=== PATIENT | male | born 1965 | race Caucasian/White ===

== ENCOUNTER 2023-11-11 07:02 | Inpatient (IN) | payer OTHER ==
[~2023-11-11] VITALS: Ht 177.8 cm; Wt 154.8 kg
[2023-11-11] MEDS: SODIUM CHLORIDE 0.9% 500 ML IVB ONE (07:42)
[2023-11-11] MEDS: MORPHINE SULFATE 4 MG/ML SYR/VIAL IV ONE ×2 (07:57→10:57)
[2023-11-11] MEDS: ONDANSETRON HCL 4 MG/2 ML VIAL IV ONE ×2 (07:58→10:55)
[2023-11-11 08:16] LABS: Basophils # (auto) 0.1 10 ^3/uL (0-0.2); Basophils % (auto) 0.5 % (0.0-2.0); Eosinophils # (auto) 0.1 10 ^3/uL (0-0.8); Eosinophils % (auto) 0.6 % (0.0-7.0); Hematocrit 42.7 % (41.0-53.0); Hemoglobin 14.4 g/dL (13.5-17.5); Lymphocytes # (auto) 1.1 10 ^3/uL (0.4-5.4); Mean Corpuscular Hemoglobin 27.4 pg (28.0-32.0); Mean Corpuscular Hgb Conc. 33.6 g/dL (32.0-36.0); Mean Corpuscular Volume 81.7 fL (80.0-100.0); Monocytes # (auto) 0.5 10 ^3/uL (0-1.3); Monocytes % (auto) 3.9 % (0.0-12.0); Platelet Count (auto) 295 10^3/uL (140-450); Red Blood Cells 5.23 10^6/uL (4.5-5.90); Red Cell Distribution Width 17.6 % (11.8-14.3); White Blood Cell 13.8 10^3/uL (4.4-10.8)
[2023-11-11 08:31] LABS: Alanine Aminotransferase 36 U/L (7-40); Albumin 4.2 g/dL (3.2-4.8); Alkaline Phosphatase 92 U/L (46-116); Anion Gap 11 (5-15); Aspartate Aminotransferase 22 U/L (13-40); BUN/Creatinine Ratio 12.1 (10.0-20.0); Blood Urea Nitrogen 11 mg/dL (9-23); Calcium 9.4 mg/dL (8.7-10.4); Carbon Dioxide 22 mmol/L (20-30); Chloride 104 mmol/L (98-107); Glucose 140 mg/dL (74-106); Potassium 3.9 mmol/L (3.5-5.1); Sodium 137 mmol/L (136-145)
[2023-11-11 08:32] LABS: Bilirubin, Total 1.4 mg/dL (0.2-1.0); Total Protein 7.1 g/dL (5.7-8.2)
[2023-11-11 12:28] VITALS: PULSE 60; RESP 18; O2SAT 95
[2023-11-11] MEDS ORDERED: NITROGLYCERIN 0.4 MG SL TAB SL PRN (13:30)
[2023-11-11] MEDS: SODIUM CHLORIDE 0.9% 1,000 ML IV SCH (14:06)
[2023-11-11] MEDS: PIPERACILLIN-TAZOB 3.375GM 100 ML IV ONE (14:06)
[2023-11-11] MEDS ORDERED: FLEC100T PO (18:54)
[2023-11-11] MEDS ORDERED: ROSU10TA64 PO (18:54)
[2023-11-11] MEDS ORDERED: METO1TAB9 PO (18:54)
[2023-11-11] MEDS ORDERED: ASPI325T6 PO (18:55)
[2023-11-11] MEDS ORDERED: SACC250C PO (18:56)
[2023-11-11] MEDS: MORPHINE SULFATE INJ 2 MG/ml SYRG IV PRN (18:58)
[2023-11-11] MEDS: PIPERACILLIN-TAZOB 3.375GM 100 ML IV SCH (18:58)
[2023-11-11] MEDS ORDERED: LORA-483 GT (19:00)
[2023-11-11 19:01] VITALS: BP 169/92; PULSE 60; RESP 18; TEMP 97.7; O2SAT 95
[2023-11-11 20:00] VITALS: RESP 16
[2023-11-11 21:00] VITALS: BP 149/68; PULSE 69; RESP 19; TEMP 98.7; O2SAT 96
[2023-11-11] MEDS: DOCUSATE SOD 100 MG CAP PO PRN (22:18)
[2023-11-12 01:00] VITALS: BP 138/75; PULSE 78; RESP 19; TEMP 98.7; O2SAT 98
[2023-11-12] MEDS: ONDANSETRON HCL 4 MG/2 ML VIAL IV PRN (02:40)
[2023-11-12 05:00] VITALS: BP 138/75; PULSE 88; RESP 19; TEMP 98.5; O2SAT 96
[2023-11-12 07:14] LABS: Basophils # (auto) 0 10 ^3/uL (0-0.2); Basophils % (auto) 0.2 % (0.0-2.0); Eosinophils # (auto) 0 10 ^3/uL (0-0.8); Eosinophils % (auto) 0.4 % (0.0-7.0); Hematocrit 37.6 % (41.0-53.0); Lymphocytes # (auto) 1.4 10 ^3/uL (0.4-5.4); Mean Corpuscular Hemoglobin 27.9 pg (28.0-32.0); Mean Corpuscular Hgb Conc. 34.6 g/dL (32.0-36.0); Mean Corpuscular Volume 80.5 fL (80.0-100.0); Monocytes # (auto) 0.9 10 ^3/uL (0-1.3); Monocytes % (auto) 7.5 % (0.0-12.0); Neutrophils # (auto) 9.4 10 ^3/uL (1.6-8.6); Neutrophils % (auto) 79.9 % (37.0-80.0); Nucleated Red Blood Cells % 0.1 %; Platelet Count (auto) 257 10^3/uL (140-450); Red Blood Cells 4.67 10^6/uL (4.5-5.90); Red Cell Distribution Width 17.9 % (11.8-14.3); White Blood Cell 11.7 10^3/uL (4.4-10.8)
[2023-11-12 07:29] LABS: Alanine Aminotransferase 25 U/L (7-40); Albumin 3.7 g/dL (3.2-4.8); Alkaline Phosphatase 80 U/L (46-116); Anion Gap 12 (5-15); Aspartate Aminotransferase 14 U/L (13-40); BUN/Creatinine Ratio 12.2 (10.0-20.0); Bilirubin, Total 1.8 mg/dL (0.2-1.0); Blood Urea Nitrogen 10 mg/dL (9-23); Calcium 8.8 mg/dL (8.7-10.4); Carbon Dioxide 22 mmol/L (20-30); Chloride 104 mmol/L (98-107); Glucose 112 mg/dL (74-106); Potassium 2.9 mmol/L (3.5-5.1); Sodium 138 mmol/L (136-145); Total Protein 6.1 g/dL (5.7-8.2)
[2023-11-12 08:45] VITALS: BP 118/47; PULSE 66; RESP 17; TEMP 97.7; O2SAT 97
[2023-11-12 12:54] VITALS: BP 136/74; PULSE 66; RESP 20; TEMP 97.9; O2SAT 94
[2023-11-12 16:40] VITALS: BP 117/64; PULSE 70; RESP 18; TEMP 98; O2SAT 97
[2023-11-12] MEDS ORDERED: METR-344 PO (17:18)
[2023-11-12 18:26] VITALS: TEMP 36.7
== END 2023-11-12 19:33 | disposition home or self-care (01) | DRG 394 ==
LOC: ER 07:02 → OVERFLOW 13:32 → WEST WING 17:56
PROVIDERS: ADMIT Nurse Practitioner Family; ATTEND Nurse Practitioner Family
DX: K94.03 Colostomy malfunction (principal); I48.20 Chronic atrial fibrillation, unspecified; K52.9 Noninfective gastroenteritis and colitis, unspecified; I10 Essential (primary) hypertension; E78.00 Pure hypercholesterolemia, unspecified; K42.9 Umbilical hernia without obstruction or gangrene; Y83.8 Other surgical procedures as the cause of abnormal reaction of the patient, or of later complication, without mention of misadventure at the time of the procedure; Y82.8 Other medical devices associated with adverse incidents; Z90.49 Acquired absence of other specified parts of digestive tract; Z88.8 Allergy status to other drugs, medicaments and biological substances
CPT/HCPCS: 36415; 74176; 80053; 85025; 87081; G0378; J2405; J2543